=== PATIENT | male | born 1965 | race Native Hawaiian/Other Pacific Islander ===

== ENCOUNTER 2016-12-10 11:35 | Day surgery (SDC) | payer BC | END 2016-12-10 16:20 | disposition home or self-care (01) | LOC: OR 11:35 | PROC: 0DBN8ZZ Excision of Sigmoid Colon, Via Natural or Artificial Opening Endoscopic (ICD-10-PCS; principal; 2016-12-10) | PROC: 0DBM8ZZ Excision of Descending Colon, Via Natural or Artificial Opening Endoscopic (ICD-10-PCS; 2016-12-10) | DX: D12.5 Benign neoplasm of sigmoid colon (principal); D12.4 Benign neoplasm of descending colon; K64.8 Other hemorrhoids; Z12.11 Encounter for screening for malignant neoplasm of colon; Z80.0 Family history of malignant neoplasm of digestive organs | CPT/HCPCS: J2704 ==

== ENCOUNTER 2019-06-24 09:24 | Outpatient (CLI) | payer BC | END 2019-06-24 22:06 | disposition home or self-care (01) | LOC: MRI 09:24 | DX: M25.552 Pain in left hip (principal) ==

== ENCOUNTER 2020-02-15 15:48 | Outpatient (CLI) | payer BC | END 2020-02-15 21:38 | disposition home or self-care (01) | LOC: RAD 15:48 | DX: Z01.818 Encounter for other preprocedural examination (principal) ==

== ENCOUNTER 2021-09-28 23:08 | Emergency (ER) | payer BC ==
[~2021-09-28] VITALS: Ht 170.2 cm; Wt 108.9 kg
[2021-09-29 00:30] VITALS: BP 136/75; TEMP 97.9
== END 2021-09-29 00:30 | disposition home or self-care (01) ==
LOC: ED 23:08
DX: H16.133 Photokeratitis, bilateral (principal); H57.13 Ocular pain, bilateral; W89.8XXA Exposure to other man-made visible and ultraviolet light, initial encounter; Y92.89 Other specified places as the place of occurrence of the external cause
CPT/HCPCS: 90471; 90715; 99283

== ENCOUNTER 2021-12-25 09:13 | Outpatient (CLI) | payer BC | END 2021-12-25 19:37 | disposition home or self-care (01) | LOC: US 09:13 | PROVIDERS: ATTEND Nurse Practitioner Family | DX: R80.9 Proteinuria, unspecified (principal) ==